=== PATIENT | male | born 1995 | race Hispanic/Latino ===

== ENCOUNTER 2019-07-22 02:44 | Emergency (ER) | payer BC, OTHER | END 2019-07-22 03:07 | LOC: EDH 02:44 | DX: Z02.83 Encounter for blood-alcohol and blood-drug test (principal); Z72.0 Tobacco use ==

== ENCOUNTER 2024-06-08 14:04 | Emergency (ER) | payer BC, OTHER ==
[~2024-06-08] VITALS: Ht 177.8 cm; Wt 127.5 kg
[2024-06-08 17:34] LABS: ADD UA MICROSCOPIC YES; APPEARANCE,URINE CLOUDY (CLEAR); BILIRUBIN,URINE NEGATIVE (NEGATIVE); COLOR,URINE LIGHT-YELLOW (YELLOW); GLUCOSE, URINE (UA) NEGATIVE (NEGATIVE); KETONES,URINE NEGATIVE (NEGATIVE); LEUKOCYTE ESTERASE ,URINE 500 Leu/uL (NEGATIVE); NITRATE,URINE NEGATIVE (NEGATIVE); OCCULT BLOOD,URINE SMALL (NEGATIVE); PH,URINE 6.5 (5.0-8.0); PROTEIN,URINE 30 mg/dL (NEGATIVE); UROBILINOGEN,URINE 0.2 mg/dL (0.2-1.0)
[2024-06-08 17:40] LABS: BACTERIA,URINE RARE /HPF (None Seen); MUCUS,URINE RARE LPF (None Seen); UNCLASSIFIED CRYSTAL 4 /HPF (None Seen); WBC,URINE >100 /HPF (0-1); YEAST,URINE BUDDING RARE /HPF (None Seen)
[2024-06-08] MEDS ORDERED: AMOX1TAB16 PO (18:06)
[2024-06-08] MEDS ORDERED: IBUP-2070 PO (18:07)
[2024-06-08] MEDS: AMOX/CLAV 875/125MG TAB PO ONE (18:14)
[2024-06-08] MEDS: IBUPROFEN 600 MG TABLET PO ONE (18:14)
[2024-06-08 18:24] VITALS: BP 120/77; PULSE 89; RESP 17; O2SAT 99
== END 2024-06-08 18:23 | disposition home or self-care (01) ==
LOC: EDH 14:04
DX: N45.1 Epididymitis (principal); N43.3 Hydrocele, unspecified
CPT/HCPCS: 76870; 81001; 87086

== ENCOUNTER 2024-06-10 22:47 | Emergency (ER) | payer BC, OTHER ==
[~2024-06-10] VITALS: Ht 177.8 cm; Wt 125.6 kg
[~2024-06-10 22:47] MED LIST: AMOX1TAB16 PO; IBUP-2070 PO
[2024-06-10] MEDS: KETOROLAC 15MG/ML VIAL (15MG/ML) IM STA (23:33)
[2024-06-10] MEDS: HYDROCODONE/ACETAMINOPHEN 5/325 MG TAB PO STA (23:33)
[2024-06-10] MEDS: LEVOFLOXACIN 500 MG/D5W 100 ML 100 ML IV STA (23:39)
[2024-06-11] MEDS ORDERED: LEVO750T68 PO (00:33)
[2024-06-11] MEDS ORDERED: LEVO-70 PO (00:35)
[2024-06-11 00:48] VITALS: BP 148/89; PULSE 92; RESP 16; O2SAT 99
== END 2024-06-11 01:26 | disposition home or self-care (01) ==
LOC: EDH 22:47
DX: N45.1 Epididymitis (principal); N43.3 Hydrocele, unspecified; Z79.899 Other long term (current) drug therapy
CPT/HCPCS: 99284; 96374; 76870; 96372; J1956; J1885